=== PATIENT | male | born 1990 | race Hispanic/Latino ===

== ENCOUNTER 2016-08-05 03:48 | Emergency (ER) | payer MEDICARE, MEDICAID ==
[2016-08-05 03:48] VITALS: BMI 30.7
[2016-08-05 03:59] VITALS: TEMP 97.4
--- NOTE | 2016-08-05 04:20 | C.PDOC ---
History Of Present Illness 26 y/o M c no PMHx p/w foreign body sensation in throat. Patient states he drank alcohol tonight and vomited and now feels like a piece of vomit is stuck in his throat. He states he was able to drink water but then threw it up. He denies change in voice or difficulty breathing. Time Seen by Provider: 08/05/16 04:15 Chief Complaint (Nursing): ENT Problem Past Medical History Vital Signs: Last Vital Signs Temp 97.4 F L 08/05/16 03:56 Pulse 98 H 08/05/16 03:56 Resp 18 08/05/16 03:56 BP 119/81 08/05/16 03:56 Pulse Ox 96 08/05/16 04:41 - Medical History PMH: Asthma, Bronchitis, Pneumonia Family History: States: Unknown Family Hx - Social History Hx Tobacco Use: No Hx Alcohol Use: Yes Hx Substance Use: No - Immunization History Hx Tetanus Toxoid Vaccination: No Hx Influenza Vaccination: No Hx Pneumococcal Vaccination: No Review Of Systems Except As Marked, All Systems Reviewed And Found Negative. Cardiovascular: Negative for: Chest Pain Respiratory: Negative for: Shortness of Breath Physical Exam - Physical Exam Additional Physical Exam Comments: Constitutional: No acute distress. Head: Normocephalic. Atraumatic. Eyes: PERRL. ENT: Moist mucous membranes. Airway patent. No foreign body seen in throat, visualized epiglottis. Neck: Supple. Cardiovascular: Regular rate. Radial pulse 2+ bilaterally. Chest: No tenderness. Respiratory: No stridor. No wheezing. GI: Soft. Nontender. Nondistended. Back: No CVA tenderness. Musculoskeletal: No tenderness or swelling of extremities. Skin: No rash. Neurologic: Alert, no focal deficit. ED Course And Treatment O2 Sat by Pulse Oximetry: 96 Medical Decision Making Medical Decision Making: No airway obstruction based on exam. No concern for nonfood object or sharp object. Will PO challenge. PO challenged, no vomiting. Will discharge home, f/u GI, return to ER for severe chest pain, vomiting, difficulty breathing. Disposition - Disposition Referrals: Franc Huynh MD [Staff Provider] - Disposition: HOME/ ROUTINE Disposition Time: 04:51 Condition: STABLE Instructions: Esophageal Foreign Body (ED) - Clinical Impression Clinical Impression: Sensation of foreign body in esophagus
[2016-08-05 05:23] VITALS: BP 120/80; PULSE 95; RESP 16; O2SAT 98
== END 2016-08-05 05:23 | disposition home or self-care (01) ==
LOC: C.ER 03:48
DX: R09.89 Other specified symptoms and signs involving the circulatory and respiratory systems (principal)